=== PATIENT | female | born 1980 | race Caucasian/White ===

== ENCOUNTER → 2019-01-04 | Outpatient (CLI) | payer OTHER | LOC: MAMMO 01-03 14:30 | DX: Z12.31 Encounter for screening mammogram for malignant neoplasm of breast (principal) ==

== ENCOUNTER → 2020-06-19 | Outpatient (CLI) | payer OTHER | LOC: RAD 09:52 | DX: M17.11 Unilateral primary osteoarthritis, right knee (principal) ==

== ENCOUNTER → 2021-03-25 | Outpatient (CLI) | payer OTHER | LOC: MAMMO 13:47 | DX: Z12.31 Encounter for screening mammogram for malignant neoplasm of breast (principal) ==

== ENCOUNTER → 2024-07-13 | Outpatient (CLI) | payer OTHER ==
[~2024-07-13] MED LIST: ALPRAZOLAM0.5 MG PO; HYDROCHLOROTH12.5 M1 PO; PRAVASTATIN SOD20 MG PO; PREDNISONE20 MG PO; ROPINIROLE HYD0.5 MG; VALACYCLOVIR1 GM PO; ZITHROMAX Z PA250 MG PO
== END ==
LOC: MAMMO 10:55
DX: Z12.31 Encounter for screening mammogram for malignant neoplasm of breast (principal)